=== PATIENT | female | born 1975 | race Caucasian/White ===

== ENCOUNTER 2020-10-26 11:42 | Inpatient (IN) | payer OTHER, MEDICAID, SELFPAY ==
[~2020-10-26] VITALS: Ht 157.5 cm; Wt 95.3 kg
[2020-10-26 11:50] VITALS: BP 129/84
[2020-10-26] MEDS ORDERED: VANCOMYCIN 1,000 MG in DEXTROSE 5% 250 ML IV ONE (13:15)
[2020-10-26] MEDS ORDERED: MORPHINE SULFATE 4 MG/ML SYR IVP ONE (13:15)
[2020-10-26] MEDS ORDERED: PIPERACILLIN/TAZOBACTAM 3.375 GM in DEXTROSE 5% 50 ML IV ONE (13:15)
[2020-10-26 13:25] LABS: BASOPHILS % (AUTO) 0.2 % (0.0-2.0); EOSINOPHILS % (AUTO) 0.1 % (0.0-4.0); HEMATOCRIT 30.4 % (36-48); HEMOGLOBIN 9.9 g/dL (12.0-16.0); LYMPHOCYTES # (AUTO) 1.1 K/uL (2.5-16.5); LYMPHOCYTES % (AUTO) 6.1 % (20.5-51.1); MEAN CORPUSCULAR HEMOGLOBIN 28 pg (27-31); MEAN CORPUSCULAR HGB CONC 33 g/dL (33-37); MEAN CORPUSCULAR VOLUME 86.1 fL (80-94); MONOCYTES % (AUTO) 5.4 % (1.7-9.3); NEUTROPHILS # (AUTO) 16.4 K/uL (1.8-7.7); NEUTROPHILS % (AUTO) 88.2 % (42.2-75.2); PLATELET COUNT (AUTO) 561 K/uL (140-450); RED BLOOD CELL COUNT(AUTO) 3.53 MIL/uL (4.20-5.40); RED CELL DISTRIBUTION WIDTH 15.4 % (11.6-13.7); WHITE BLOOD COUNT (AUTO) 18.6 K/uL (4.8-10.8)
[2020-10-26 13:40] LABS: ALBUMIN 2.2 g/dL (3.4-5.0); ANION GAP 12.5 (8-16); CARBON DIOXIDE 27.4 mmol/L (21-32); CREATININE 0.8 mg/dL (0.6-1.3); POTASSIUM 3.9 mmol/L (3.5-5.1); TOTAL BILIRUBIN 1.3 mg/dL (0.0-1.0)
[2020-10-26] MEDS ORDERED: NACL 0.9% 1,000 ML IV ONE (15:45)
--- NOTE | 2020-10-26 17:10 | NUR ---
FROM THE TENT AND CAME IN ER LOBBY, STILL PLACE ON THE CHAIR. SEEN AND EXAMINED BY DR. HARRISON , ER ATTENDING PHYSICIAN
[2020-10-26] MEDS ORDERED: MAG SULF 2000 MG/WATER PREMIX 50 ML IV PRN (17:25)
[2020-10-26] MEDS ORDERED: ONDANSETRON 4 MG/2 ML VIAL IM/IVP PRN (17:25)
[2020-10-26] MEDS ORDERED: POTASSIUM CHLORIDE 10 MEQ TABER PO PRN (17:25)
[2020-10-26] MEDS ORDERED: DOCUSATE SODIUM 100 MG GELCAP PO PRN (17:25)
[2020-10-26] MEDS ORDERED: ZOLPIDEM 5 MG TAB PO PRN (17:25)
[2020-10-26] MEDS ORDERED: VANCOMYCIN PER PHARMACY MC PRN (17:25)
[2020-10-26] MEDS ORDERED: ACETAMINOPHEN 325 MG TAB PO PRN (17:25)
--- NOTE | 2020-10-26 17:42 | NUR ---
COMPLAINED OF LEFT ARM PAIN, 07/01 FACIAL GRIMACED NOTED, MORPHINE 2MG IV ORDERED PRN GIVEN Addendum: 10/26/20 at 1802 by Floridalma Naidu RN SEEN AND EXAMINED BY. DR. GARLAND, FOR ADMISSION
[2020-10-26] MEDS: MORPHINE SULFATE 2 MG/ML SYR IVP PRN (17:46)
[2020-10-26] MEDS ORDERED: PIPERACILLIN/TAZOBACTAM 3.375 GM VIAL IV ONE (17:55)
--- NOTE | 2020-10-26 17:55 | NUR ---
ANTIBIOTIC AT 1315H NON ADMINISTER, APPARENTLY THE PATIENT IN THE TENT, NOBODY WILL MONITOR FOR POSSIBLE ADVERSE REACTION
[2020-10-26 18:00] VITALS: BP 125/79
[2020-10-26] MEDS ORDERED: PIPERACILLIN/TAZOBACTAM 3.375 GM in DEXTROSE 5% 50 ML IV SCH (18:00)
--- NOTE | 2020-10-26 18:20 | NUR ---
MRSA NARES SWAB AND URINE SAMPLE SENT TO LAB
[2020-10-26 18:39] LABS: PROTHROMBIN TIME 11.8 secs (10.8-13.4)
--- NOTE | 2020-10-26 19:00 | NUR ---
CONSENT OBTAINED FOR CT SCAN UPPER EXTREMITY W/ WITHOUT CONTRAST, AWAITING THE ATTENDING TO SIGN
[2020-10-26 19:09] LABS: MAGNESIUM 2.1 mg/dL (1.8-2.4); PHOSPHORUS 1.9 mg/dL (2.5-4.9); THYROID STIMULATING HORMONE 0.5 uIU/mL (0.34-3.74)
[2020-10-26] MEDS ORDERED: VANCOMYCIN 500 MG VIAL ONE (19:10)
[2020-10-26] MEDS ORDERED: VANCOMYCIN 1,000 MG VIAL ONE (19:10)
--- NOTE | 2020-10-26 19:30 | NUR ---
SITTING IN CHAIR, AWAKE, CALLING OUT REQUEST FOR SOMETHING TO EAT. ALSO REQUESTING MED FOR ANXIETY. REASSURANCE GIVEN. PT IS NPO
--- NOTE | 2020-10-26 19:31 | NUR ---
ENDORSED TO [employer] IN STABLE CONDITION FOR CONTINUITY OF CARE
--- NOTE | 2020-10-26 19:45 | NUR ---
TO US VIA W/C
[2020-10-26 19:55] LABS: APPEARANCE,URINE CLOUDY (CLEAR); BILIRUBIN,URINE 1+ (NEGATIVE); BLOOD, URINE TRACE-I (NEGATIVE); COLOR,URINE ORANGE (YELLOW); LEUKOCYTE ESTERASE ,URINE TRACE (NEGATIVE); NITRITE, URINE NEGATIVE (NEGATIVE); UGLUCOSE NEGATIVE (NEGATIVE)
--- NOTE | 2020-10-26 19:59 | NUR ---
EKG NOT PERFORMED AT THIS TIME PT WAS UN-AVAILABLE. WILL CHECK BACK AT A LATER TIME.
[2020-10-26 20:03] LABS: BARBITURATE, URINE NEGATIVE ng/ml (NEG <=200); BENZODIAZEPINE, URINE NEGATIVE ng/mL (NEG <=200); CANNABINOID, URINE POSITIVE ng/mL (NEG <=50); COCAINE, URINE NEGATIVE ng/mL (NEG <=300); OPIATE, URINE POSITIVE ng/mL (NEG <=2000); PHENCYCLIDINE SCREEN,URINE NEGATIVE ng/mL (NEG <=25)
[2020-10-26] MEDS: VANCOMYCIN 1,500 MG in DEXTROSE 5% 500 ML IV SCH (20:08)
[2020-10-26] MEDS: NACL 0.9% 1,000 ML IV SCH (20:53)
[2020-10-26] MEDS: LORazepam 2 MG/ML VIAL IM/IVP PRN (20:57)
--- NOTE | 2020-10-26 21:01 | NUR ---
PT MOVED TO BED 13
--- NOTE | 2020-10-26 21:05 | NUR ---
AWAKE AND ALERT. RESTLESS AND ANXIOUS. MEDICATED ORDERED
--- NOTE | 2020-10-26 22:30 | NUR ---
AWAKE, PULLED IV OUT THEN AMBULATED TO BR WITH STEADY GAIT, RETURNED TO [facility] THEN MADE COMFORTABLE
[2020-10-27] MEDS: NACL 0.9% 1,000 ML IV SCH ×3 (01:56→19:22)
--- NOTE | 2020-10-27 05:00 | NUR ---
RESTING WITH EYES CLOSED, SNORING. UNSUCCESSFUL ATTEMPT TO REESTABLISH IV ACCESS
[2020-10-27] MEDS: VANCOMYCIN 1,500 MG in DEXTROSE 5% 500 ML IV SCH ×2 (07:05→20:28)
[2020-10-27] MEDS ORDERED: VANCOMYCIN 1,000 MG VIAL ONE ×2 (07:06→20:00)
[2020-10-27] MEDS ORDERED: VANCOMYCIN 500 MG VIAL ONE ×2 (07:06→20:00)
--- NOTE | 2020-10-27 07:12 | NUR ---
PATIENT HAS BEEN SCREENED AND CATEGORIZED MODERATE NUTRITION RISK. PATIENT WILL BE SEEN WITHIN 3-5 DAYS OF ADMISSION. 10/29/20 - 10/31/20 JULIUS FELDMAN MBA,RD
--- NOTE | 2020-10-27 08:09 | NUR ---
assumed patient care 45 years old female sleeping no acute changes left arm swollen, awaiitng for admit bed.
[2020-10-27 08:58] LABS: BASOPHILS # (AUTO) 0.1 K/uL (0.00-0.22); BASOPHILS % (AUTO) 0.4 % (0.0-2.0); EOSINOPHILS % (AUTO) 0.2 % (0.0-4.0); HEMATOCRIT 25.3 % (36-48); HEMOGLOBIN 8.3 g/dL (12.0-16.0); LYMPHOCYTES # (AUTO) 1.4 K/uL (2.5-16.5); LYMPHOCYTES % (AUTO) 10.9 % (20.5-51.1); MEAN CORPUSCULAR HEMOGLOBIN 28 pg (27-31); MEAN CORPUSCULAR HGB CONC 33 g/dL (33-37); MEAN CORPUSCULAR VOLUME 85.9 fL (80-94); MONOCYTES # (AUTO) 1.1 K/uL (0.8-1.0); MONOCYTES % (AUTO) 8.4 % (1.7-9.3); NEUTROPHILS # (AUTO) 10.3 K/uL (1.8-7.7); NEUTROPHILS % (AUTO) 80.1 % (42.2-75.2); PLATELET COUNT (AUTO) 477 K/uL (140-450); RED BLOOD CELL COUNT(AUTO) 2.94 MIL/uL (4.20-5.40); RED CELL DISTRIBUTION WIDTH 15.1 % (11.6-13.7); WHITE BLOOD COUNT (AUTO) 12.8 K/uL (4.8-10.8)
[2020-10-27 09:09] LABS: ANION GAP 9.2 (8-16); CARBON DIOXIDE 28.5 mmol/L (21-32); POTASSIUM 3.7 mmol/L (3.5-5.1)
[2020-10-27 09:27] LABS: CHOL/HDL RATIO 10.2 (1-4.5); MAGNESIUM 2.6 mg/dL (1.8-2.4); PHOSPHORUS 2.5 mg/dL (2.5-4.9)
--- NOTE | 2020-10-27 12:11 | NUR ---
SOCIAL WORK NOTE: SW ATTEMPTED TO MEET PATIENT AT BEDSIDE TO COMPLETE ASSESSMENT. PATIENT WAS NOT YET ON FLOOR. SW WILL FOLLOW UP.
--- NOTE | 2020-10-27 15:11 | NUR ---
patient reassess, resting in gurney, right arm swollen on a sling denies pain, no acute distress.
[2020-10-27] MEDS: HYDROcodone/APAP 5/325 MG 1 TAB TAB PO PRN (16:37)
--- NOTE | 2020-10-27 19:30 | NUR ---
pt taken to ct scan via w/c
--- NOTE | 2020-10-27 19:56 | NUR ---
PT RETURNED FROM CT SCAN
[2020-10-27] MEDS ORDERED: CRUSHER, PILL MC ONE (19:58)
[2020-10-27] MEDS: ESCITALOPRAM 20 MG TAB PO SCH (20:29)
--- NOTE | 2020-10-27 20:30 | NUR ---
PT C/O 10/ PAIN. MORPHINE PRN GIVEN
[2020-10-27] MEDS: MORPHINE SULFATE 2 MG/ML SYR IVP PRN (20:31)
--- NOTE | 2020-10-27 22:05 | NUR ---
PT RESTING IN BED, EYES CLOSED, RESPRIATIONS EVEN AND UNLABORED. CHEST RISE IS SYMMETRICAL. WILL CONTINUE TO MONITOR.
--- NOTE | 2020-10-28 00:12 | NUR ---
PT RESTING IN BED, EYES CLOSED, RESPRIATIONS EVEN AND UNLABORED. CHEST RISE IS SYMMETRICAL. WILL CONTINUE TO MONITOR.
--- NOTE | 2020-10-28 02:32 | NUR ---
PT RESTING IN BED, EYES CLOSED, RESPRIATIONS EVEN AND UNLABORED. CHEST RISE IS SYMMETRICAL. WILL CONTINUE TO MONITOR.
[2020-10-28] MEDS: NACL 0.9% 1,000 ML IV SCH ×4 (03:32→21:31)
--- NOTE | 2020-10-28 04:40 | NUR ---
PT REQUESTING WATER AND PAIN MEDS. C/O 07/31 PAIN TO LEFT ARM AND SHOULDER. PROVIDED PT WITH WATER AND JUICE
[2020-10-28] MEDS: MORPHINE SULFATE 2 MG/ML SYR IVP PRN ×2 (04:58→09:59)
[2020-10-28] MEDS ORDERED: VANCOMYCIN 500 MG VIAL ONE (07:15)
[2020-10-28] MEDS ORDERED: VANCOMYCIN 1,000 MG VIAL ONE (07:15)
[2020-10-28] MEDS: VANCOMYCIN 1,500 MG in DEXTROSE 5% 500 ML IV SCH (07:26)
--- NOTE | 2020-10-28 07:26 | NUR ---
Report received from KESHA Jacobson. Transfer of care at this time.
--- NOTE | 2020-10-28 07:30 | NUR ---
GAVE REPORT TO KESHA WILKINSON. ENDORSED CARE AT THIS TIME.
[2020-10-28 07:33] LABS: T4 (THYROXINE) 7.5 ug/dL (4.5-12.0)
--- NOTE | 2020-10-28 07:42 | NUR ---
Pt states she is nauseaus, HOB elevated emesis bag provided. Bed locked and in lowest position.
--- NOTE | 2020-10-28 08:16 | NUR ---
Dr. Paul is evaluating the patient at bedside.
--- NOTE | 2020-10-28 09:42 | NUR ---
Pt complains of 9/10 pain to left arm, morphine PRN given per MD order.
--- NOTE | 2020-10-28 09:54 | NUR ---
manufacturing technology professor at pt bedside.
--- NOTE | 2020-10-28 10:04 | NUR ---
Pt calling out, on assessment IV slipped out, D/c'd.
--- NOTE | 2020-10-28 10:16 | NUR ---
Unsuccessful attempt to restablish IV access. Dr. Graves made aware.
--- NOTE | 2020-10-28 10:28 | NUR ---
Per Dr. Graves PICC line ordered to be inserted.
[2020-10-28 10:46] LABS: BASOPHILS # (AUTO) 0.1 K/uL (0.00-0.22); BASOPHILS % (AUTO) 0.6 % (0.0-2.0); EOSINOPHILS % (AUTO) 0.4 % (0.0-4.0); HEMATOCRIT 26.3 % (36-48); HEMOGLOBIN 8.6 g/dL (12.0-16.0); LYMPHOCYTES # (AUTO) 1.4 K/uL (2.5-16.5); LYMPHOCYTES % (AUTO) 14.2 % (20.5-51.1); MEAN CORPUSCULAR HEMOGLOBIN 28 pg (27-31); MEAN CORPUSCULAR HGB CONC 33 g/dL (33-37); MEAN CORPUSCULAR VOLUME 86.6 fL (80-94); MONOCYTES # (AUTO) 0.8 K/uL (0.8-1.0); MONOCYTES % (AUTO) 8.1 % (1.7-9.3); NEUTROPHILS # (AUTO) 7.6 K/uL (1.8-7.7); NEUTROPHILS % (AUTO) 76.7 % (42.2-75.2); PLATELET COUNT (AUTO) 605 K/uL (140-450); RED BLOOD CELL COUNT(AUTO) 3.04 MIL/uL (4.20-5.40)
[2020-10-28 10:59] LABS: ANION GAP 8.9 (8-16); CARBON DIOXIDE 28.9 mmol/L (21-32); CREATININE 1.2 mg/dL (0.6-1.3); POTASSIUM 3.8 mmol/L (3.5-5.1)
[2020-10-28 11:01] LABS: MAGNESIUM 3.2 mg/dL (1.8-2.4); PHOSPHORUS 2.5 mg/dL (2.5-4.9)
--- NOTE | 2020-10-28 11:12 | NUR ---
Pt ambulated to restroom with a steady gait.
--- NOTE | 2020-10-28 11:13 | NUR ---
Pt requesting food, re-educated pt of NPO status.
--- NOTE | 2020-10-28 11:44 | NUR ---
PICC line consent received and placed in pt chart.
--- NOTE | 2020-10-28 13:21 | NUR ---
Pt sleeping on right side, visible equal rise and fall of chest, VSS, will continue to monitor.
--- NOTE | 2020-10-28 15:28 | NUR ---
Pt requesting for food, informed pt of NPO status, will continue to monitor.
--- NOTE | 2020-10-28 16:13 | NUR ---
Amber wingnely in EDM - 10/28/20 at 1910 by [email or web address] EMERGENCY CONTACTS: CATHERINE (BOYFRIEND) [phone], MONO (DAUGHTER) [phone]. PATIENT GAVE PERMISSION TO GIVE INFORMATION TO BOTH BOYFRIEND AND DAUGHTER.
--- NOTE | 2020-10-28 16:31 | NUR ---
Pt sleeping, equal visible rise and fall of chest, VSS, will continue to monitor.
[2020-10-28] MEDS: ESCITALOPRAM 20 MG TAB PO SCH (17:56)
--- NOTE | 2020-10-28 18:27 | NUR ---
Pt c/o 05/31 pain to left arm, gave [place] PRN per MD order.
[2020-10-28] MEDS: HYDROcodone/APAP 5/325 MG 1 TAB TAB PO PRN (18:34)
--- NOTE | 2020-10-28 18:40 | NUR ---
PICC line nurse Joseph at pt bedside.
--- NOTE | 2020-10-28 19:15 | NUR ---
CR ordered for PICC line placement.
--- NOTE | 2020-10-28 19:35 | NUR ---
Report given to KESHA Orosco. Transfer of care at this time.
--- NOTE | 2020-10-28 20:15 | NUR ---
AWAKE WITH C/O PAIN. MUCH FACIAL GRIMACING NOTED.
--- NOTE | 2020-10-28 23:30 | NUR ---
IS ANXIOUS, ROCKING BACK AND FORTH . IS VERY RESTLESS. MEDICATED ORDERED
[2020-10-28] MEDS: LORazepam 2 MG/ML VIAL IM/IVP PRN (23:31)
--- NOTE | 2020-10-29 02:00 | NUR ---
AMBULATED TO BR WITH STEADY GAIT
--- NOTE | 2020-10-29 04:00 | NUR ---
RESTING IN BED WITH EYES CLOSED RESPIRATIONS REGULAR AND UNLABORED.
--- NOTE | 2020-10-29 06:00 | NUR ---
AWAKE, VSS, DENIES PAIN AT THIS TIME.
[2020-10-29 08:08] LABS: FOLIC ACID 8.8 ng/mL (>3.0)
[2020-10-29 10:45] LABS: BASOPHILS # (AUTO) 0.1 K/uL (0.00-0.22); BASOPHILS % (AUTO) 1.2 % (0.0-2.0); EOSINOPHILS % (AUTO) 0.4 % (0.0-4.0); HEMATOCRIT 26.2 % (36-48); HEMOGLOBIN 8.7 g/dL (12.0-16.0); LYMPHOCYTES % (AUTO) 11.6 % (20.5-51.1); MEAN CORPUSCULAR HEMOGLOBIN 28 pg (27-31); MEAN CORPUSCULAR HGB CONC 33 g/dL (33-37); MEAN CORPUSCULAR VOLUME 85.4 fL (80-94); MONOCYTES # (AUTO) 0.6 K/uL (0.8-1.0); MONOCYTES % (AUTO) 6.9 % (1.7-9.3); NEUTROPHILS # (AUTO) 7.2 K/uL (1.8-7.7); NEUTROPHILS % (AUTO) 79.9 % (42.2-75.2); PLATELET COUNT (AUTO) 667 K/uL (140-450); RED BLOOD CELL COUNT(AUTO) 3.07 MIL/uL (4.20-5.40); RED CELL DISTRIBUTION WIDTH 15.4 % (11.6-13.7)
--- NOTE | 2020-10-29 10:50 | NUR ---
SEEN PT. AT ER BED 13. POC DISCUSSED WITH ER DOCTOR AND PRIMARY RN. LEFT UPPER ARM S/P ORIF SURGICAL WOUNDS 4 AREAS TOTAL OF 18 CHATO REMOVE, SURGICAL SITES NO S/S OF WOUND DEHISCENCE, AREAS DRY AND CLEAN ,DRY SCABS NOTICED. PT TOLERATE PROCEDURES WELL.
[2020-10-29 11:03] LABS: ANION GAP 8.3 (8-16); CARBON DIOXIDE 31.1 mmol/L (21-32); CREATININE 1.2 mg/dL (0.6-1.3); POTASSIUM 4.4 mmol/L (3.5-5.1)
--- NOTE | 2020-10-29 11:08 | NUR ---
45 years old female with left arm swollen, ash removed by wound care denies sob cp covid negative will continue to monitor.
[2020-10-29 11:09] LABS: MAGNESIUM 2.6 mg/dL (1.8-2.4); PHOSPHORUS 3.7 mg/dL (2.5-4.9)
--- NOTE | 2020-10-29 11:15 | NUR ---
resting in gurney, no changes, no sob, denies nausea vomiting.
[2020-10-29] MEDS ORDERED: VANCOMYCIN 750 MG in DEXTROSE 5% 250 ML IV SCH (12:00)
[2020-10-29] MEDS: NACL 0.9% 1,000 ML IV SCH (12:55)
--- NOTE | 2020-10-29 14:38 | NUR ---
PITO BASILIO: RECEIVED ORDER FOR FOLLOW UP APPT AT [facility]. CALLED OUTPATIENT FOLLOW UP NUMBER [phone] THEY ASKED FOR ME FAX THE ODER ONCE RECEIVED THEY WILL CALL ME BACK WITH AN APPOINTMENT
[2020-10-29] MEDS ORDERED: SULF-59 PO ×2 (15:16→15:31)
[2020-10-29] MEDS ORDERED: LACT1.4C PO (15:32)
[2020-10-29 16:54] VITALS: BP 138/72
[2020-10-29] MEDS: ESCITALOPRAM 20 MG TAB PO SCH (16:59)
[2020-10-29] MEDS: HYDROcodone/APAP 5/325 MG 1 TAB TAB PO PRN (17:00)
--- NOTE | 2020-10-29 19:41 | NUR ---
RECEIVED REPORT FROM KESHA ASIF AND [facility].
--- NOTE | 2020-10-29 20:10 | NUR ---
removed pt PICC line via sterile technique. removed 35cm of PICC catheter. covered site with sterile gauze and vaseline dressing.
--- NOTE | 2020-10-29 20:15 | NUR ---
Patient discharged with v/s stable. Written and verbal after care instructions given and explained. Patient verbalized understanding. with . All questions addressed prior to discharge. Advised to follow up with PMD. Advised to follow up with appointment to [facility] next week. RX given per Dr. Graves.
== END 2020-10-29 20:15 | disposition home or self-care (01) | DRG 720 ==
LOC: MED 11:42 → MTU 17:22 → MMU 10-27 08:49
PROC: 02HV33Z Insertion of Infusion Device into Superior Vena Cava, Percutaneous Approach (ICD-10-PCS; principal; 2020-10-28)
DX: A41.9 Sepsis, unspecified organism (principal); E43 Unspecified severe protein-calorie malnutrition; E87.1 Hypo-osmolality and hyponatremia; Z68.38 Body mass index [BMI] 38.0-38.9, adult; D63.8 Anemia in other chronic diseases classified elsewhere; D47.3 Essential (hemorrhagic) thrombocythemia; E66.9 Obesity, unspecified; Z59.0 Homelessness; Z20.822 Contact with and (suspected) exposure to COVID-19; F41.9 Anxiety disorder, unspecified; S42.202A Unspecified fracture of upper end of left humerus, initial encounter for closed fracture; C50.911 Malignant neoplasm of unspecified site of right female breast; F12.10 Cannabis abuse, uncomplicated; F11.10 Opioid abuse, uncomplicated; F15.10 Other stimulant abuse, uncomplicated; Z83.3 Family history of diabetes mellitus; Z82.49 Family history of ischemic heart disease and other diseases of the circulatory system; V09.9XXA Pedestrian injured in unspecified transport accident, initial encounter; Y93.89 Activity, other specified; Y92.89 Other specified places as the place of occurrence of the external cause; Y99.8 Other external cause status
CPT/HCPCS: 36415; 71045; 73060; 73080; 76641; 76705; 80048; 80053; 80202; 80305; 81001; 82140; 82150; 82607; 82728; 82746; 83036; 83540; 83605; 83690; 83735; 83880; 84100; 84134; 84436; 84443; 85025; 85045; 85610; 85651; 85730; 86140; 87040; 87081; 87086; 99291; J1644; J2060; J2270; J2405; J2543; J3370; J7060; Q9967